=== PATIENT | female | born 1985 | race Caucasian/White ===

== ENCOUNTER 2022-11-24 05:30 | Day surgery (SDC) | payer OTHER ==
[~2022-11-24] VITALS: Ht 167.6 cm; Wt 81.8 kg
--- NOTE | ~2022-11-24 | OR ---
[facility] [place] [facility] [address], [place] [address] Draft DATE OF OPERATION: 11/24/2022 SURGEON: Bessie Mars MD PREOPERATIVE DIAGNOSIS: Recurring acute and chronic tonsillitis. POSTOPERATIVE DIAGNOSES: Recurring acute and chronic tonsillitis and acute tonsillitis. PROCEDURE: Tonsillectomy. INDICATIONS: This 37-year-old female has had a lifelong history of recurring infections. She has had between five and eight episodes in last two years. Also, has chronic pain and halitosis from chronic tonsillitis. Hence, a tonsillectomy was indicated. Medical treatment was inadequate. PROCEDURE IN DETAIL: The patient was placed in the supine position, had an orotracheal intubation, was placed under general anesthesia. McIvor mouth gag was inserted into the oral cavity exposing the tonsil and could be seen that she was getting acute tonsillitis again with something of an exudate. The patient was given a couple of g of Ancef IV and then the tonsil was grasped with tenaculum, was dissected from the pharyngeal musculature with a Bovie cautery tip set on 25 using short bursts of energy and going around the edge to allow adequate thermal relaxation. A subcapsular plane was employed. That tonsil on the left side was twice the size of one on the right. Inferiorly, it was dissected and there apparently was an old abscess cavity from a peritonsillar abscess, which could have been related to the present state. After it was removed and extracted some bismuth was placed into the tonsillar fossa as was the usual procedure however it turned out to be bismuth subcarbonate instead of bismuth subgallate, so it was thoroughly rinsed out, suctioned and was not used on the right side, but in place of that tranexamic acid was given IV. The mouth gag was completely removed allowing for at least 60 seconds for perfusion of the tissues, then it was reinserted this time grasping the right tonsil, was only half the size of the left one and it was dissected likewise. Estimated blood loss was between 5 and 10 mL, was entirely from the left side which was hypervascular. There were no complications. The patient went to recovery room in good condition. PATIENT NAME: ANKUR WADE OPERATIVE REPORT DATE OF : [birth year] REPORT #: [id number] PHYSICIAN: BESSIE MARS MD PCP: [facility] REPORT IS CONFIDENTIAL AND NOT TO BE RELEASED WITHOUT AUTHORIZATION [address] [place] [address] Draft MD RAHEEM Xiong/MODL /[id number] Copies: ~ PATIENT NAME: ANKUR WADE OPERATIVE REPORT DATE OF : [birth year] REPORT #: [id number] PHYSICIAN: BESSIE MARS MD PCP: [facility] REPORT IS CONFIDENTIAL AND NOT TO BE RELEASED WITHOUT AUTHORIZATION
--- NOTE | 2022-11-24 08:24 | NUR ---
11/24/22 0824 Chantel Barahona 0820 PATIENT ARRIVES TO PACU AWAKE BUT DROWSY. DENIES PAIN OR NAUSEA. FEELING COLD, NEGRITA PAWS ON. RESP EVEN AND UNLABORED, ROOM AIR SATS >94%.
--- NOTE | 2022-11-24 08:54 | NUR ---
STEPHY 0850: PT IS BACK TO FROM PACU. SHE IS AWAKE AND ALERT, NO COMPLAINTS OF PAIN. SHE IS TOLERATING WATER. CALL LIGHT WITHIN REACH. SHE WOULD LIKE SOME APPLE SAUCE. NO ADDITIONAL NEEDS OR CONCERNS.
--- NOTE | 2022-11-24 10:04 | NUR ---
LE 0955: PT IS UP OOB TO USE THE RESTROOM. SHE IS ABLE TO AMBULATE INDEPENDENTLY TO AND FROM THE BATHROOM. SHE HAS MET DC CRITERIA AT THIS TIME AND INDICATES THAT SHE WOULD LIKE TO GO HOME. SHE IS GIVEN INSTRUCTIONS ON HOW TO BEST DRESS HERSELF AND TO OPEN HER CURTAIN WHEN READY. LE 1002: PT IS GIVEN VERBAL AND WRITTEN DC INSTRUCTIONS. SHE HAS NO QUESTIONS AT THIS TIME. SHE IS TAKEN TO PERSONAL VEHICLE VIA , WHERE SHE TRANSFERS HERSELF INDEPENDENTLY.
--- NOTE | 2022-11-24 12:48 | NUR ---
PT ALERT,ORIENTED AND SUPPORTED BY HER DAD. PT IS PLEASANT, ALL QUESTIONS ASKED ANSWERED. PT DECLINES PRAYER, DAD WILL REMAIN FOR DC.
== END 2022-11-24 10:05 | disposition home or self-care (01) ==
LOC: DS 05:30
PROVIDERS: ATTEND Otolaryngology
PROC: 0CBPXZZ Excision of Tonsils, External Approach (ICD-10-PCS; principal; 2022-11-24 07:30)
DX: J03.91 Acute recurrent tonsillitis, unspecified (principal); J35.01 Chronic tonsillitis
CPT/HCPCS: J0330; J0690; J1100; J2001; J2405; J2704; J3010; J7121